=== PATIENT | female | born 1995 | race Caucasian/White ===

== ENCOUNTER 2017-12-09 20:29 | Emergency (ER) | payer OTHER ==
[~2017-12-09] VITALS: Ht 157.5 cm; Wt 83.9 kg
[2017-12-09 20:40] VITALS: BP_SYST 123
[2017-12-10 05:32] VITALS: BP_SYST 122
== END 2017-12-10 01:07 | disposition home or self-care (01) ==
LOC: SED 20:29
DX: S13.4XXA Sprain of ligaments of cervical spine, initial encounter (principal); M79.1 Myalgia; Z88.0 Allergy status to penicillin; V89.2XXA Person injured in unspecified motor-vehicle accident, traffic, initial encounter; Y93.89 Activity, other specified; Y92.89 Other specified places as the place of occurrence of the external cause; Y99.8 Other external cause status
CPT/HCPCS: 81025; 99283

== ENCOUNTER 2022-11-08 12:51 | Emergency (ER) | payer SELFPAY ==
[~2022-11-08] VITALS: Ht 162.6 cm; Wt 108.9 kg
[2022-11-08 13:03] VITALS: BP_SYST 136
--- NOTE | 2022-11-08 14:25 | NUR ---
Patient to ER bed 07 to gown for evaluation. Side rails up.
--- NOTE | 2022-11-08 14:25 | NUR ---
PT IN HALLWAY BED. WILL ASSUME CARE
--- NOTE | 2022-11-08 14:27 | NUR ---
TAKEN TO RADIOLOGY VIA WHEELCHAIR
--- NOTE | 2022-11-08 14:36 | NUR ---
PT PLACED IN HALLWAY AND MADE COMFORTABLE. PT STATES SHE FELL ON STAIRS YESTERDAY WEARING PLATEFORM BOOTS. PT STATES SHE IS UNABLE TO BEAR WEIGHT ON LEFT FOOT. ++SWELLING, ABLE TO MOVE TOES. STATES PAIN IS TOLERABLE.
[2022-11-08] MEDS ORDERED: MORPHINE 4 MG INJ. 4 MG/ML VIAL IM ONE (15:30)
[2022-11-08] MEDS ORDERED: ONDANSETRON 4 MG ODT TAB PO ONE (15:45)
--- NOTE | 2022-11-08 16:35 | NUR ---
DR HER SPEAKING WITH PT REGARDING TREATMENTS
[2022-11-08] MEDS ORDERED: HYDR-3917 PO (16:41)
[2022-11-08] MEDS ORDERED: IBUP-1971 PO (16:41)
--- NOTE | 2022-11-08 16:50 | NUR ---
CD OF XRAYS GIVEN TO MOTHER OF PT. CRUTCHES AND CRUTCH TRAINING DONE BY CAROLINE
--- NOTE | 2022-11-08 16:58 | NUR ---
Patient given written and verbal discharge instructions and verbalizes understanding. ER MD discussed with patient the results and treatment provided. Patient in stable condition. ID arm band removed. Rx of NORCO, IBUPROFEN given. Patient educated on pain management and to follow up with PMD. Pain Scale 0/10. Opportunity for questions provided and answered. Medication side effect fact sheet provided.
== END 2022-11-08 16:58 | disposition home or self-care (01) ==
LOC: SED 12:51
DX: S82.852A Displaced trimalleolar fracture of left lower leg, initial encounter for closed fracture (principal); Z88.0 Allergy status to penicillin; Z79.899 Other long term (current) drug therapy; W10.9XXA Fall (on) (from) unspecified stairs and steps, initial encounter; Y93.89 Activity, other specified; Y92.89 Other specified places as the place of occurrence of the external cause; Y99.8 Other external cause status
CPT/HCPCS: 99283; 29505; 73610; 96372; Q0162; J2270